=== PATIENT | male | born 1945 | race Caucasian/White ===

== ENCOUNTER → 2021-01-07 10:46 | Outpatient (REF) | payer MEDICARE, OTHER, SELFPAY ==
--- NOTE | 2021-01-07 | HM_ITS ---
TEST PERFORMED: Cardiac event monitoring. INDICATION: Palpitations. ENROLLMENT PERIOD: 01/08/2021 to 02/07/2021-30 days. INDICATION: Palpitations. FINDINGS: In the above monitoring period, the underlying rhythm was sinus. The rates ranged from 48 beats per minute to 120 beats per minute. Overall, average 68/min. There is no evidence of any atrial fibrillation. No significant pauses. There were rare PVCs-6 over the entire monitoring period. One instance of 3-beat run of ventricular ectopy. Rare PAC. No patient symptoms noted during the monitoring. CONCLUSION: Study shows underlying sinus rhythm with rare PVCs/PAC. One 3-beat ventricular run. Augusto Couch MD HS/MODL / [id number]
== END ==
LOC: HO.CARD 10:46
PROVIDERS: Visit Provider Emergency Medicine
DX: R00.2 Palpitations (principal)
CPT/HCPCS: 93270

== ENCOUNTER 2021-02-15 07:25 | Outpatient (REF) | payer MEDICARE, OTHER, SELFPAY ==
--- NOTE | ~2021-02-15 | CT_ITS ---
EXAMINATION: CT CHEST WITHOUT CONTRAST CLINICAL INFORMATION: Two-year followup of abnormal finding. COMPARISON: CT chest 02/12/2019 TECHNIQUE: Multidetector volumetric CT imaging of the chest was done. Axial MIP volume rendering provided. Sagittal and coronal reformatted images were obtained. This CT examination was performed using dose optimization techniques as appropriate, variously including the following: *Automated exposure control *Adjustment of mA and/or kV according to patient size (this includes techniques or standardized protocols for targeted exams where dose is matched to indication/reason for exam; i.e. extremities or head) *Use of iterative reconstruction technique DLP: 150 mGy-cm FINDINGS: CERTIFIED MEDICAL BILLER: Unremarkable. LUNGS: There is trace paraseptal emphysema without acute pneumonic process. There are several calcified and noncalcified small pulmonary nodules which are stable. The largest noncalcified pulmonary nodule in the left lower lobe measures 3 mm on axial image 418/5. There is no large pulmonary nodule or consolidation. There is no ground-glass density. MEDIASTINUM: The thyroid lobes are symmetric and normal. The central trachea and the bronchi are widely patent. The heart size and the great vessels are normal caliber. There are coronary artery calcifications. No pericardial effusion seen. PLEURA: There is no pleural effusion. No pleural mass or thickening. AXILLA: There are small bilateral axillary lymph nodes. The largest left axillary lymph node measures 7 mm and right axillary lymph node measures 8 mm. UPPER ABDOMEN: The visualized liver, pancreas and bilateral adrenal glands are unremarkable. The gallbladder is unremarkable. There is a hypodense lesion along the outer cortex measuring 1.2 cm axial image 56/3, likely simple cyst. OSSEOUS STRUCTURES: There is mild ventral spondylosis mid and lower dorsal spine. No lytic process. Hemangioma of T11 vertebra is noted. CT/CT chest wo con IMPRESSION: Trace paraseptal emphysema. Multiple small calcified and noncalcified pulmonary nodules are stable. The largest noncalcified pulmonary nodule in the left lower lobe measures 3 mm. Probable small cyst in the spleen. It is stable. Vertebral T11 hemangioma is stable.
== END 2021-02-15 07:26 | disposition home or self-care (01) ==
LOC: HO.CT 07:25
PROVIDERS: PCP Family Medicine; Visit Provider Family Medicine
DX: R91.8 Other nonspecific abnormal finding of lung field (principal)
CPT/HCPCS: 71250

== ENCOUNTER 2022-05-03 03:07 | Emergency (ER) | payer MEDICARE, OTHER, SELFPAY ==
--- NOTE | 2022-05-03 03:09 | ECG_ITS ---
Test Reason : PALPITATIONS Blood Pressure : / mmHG Vent. Rate : 075 BPM Atrial Rate : 075 BPM P-R Int : 150 ms QRS Dur : 076 ms QT Int : 350 ms P-R-T Axes : 054 040 038 degrees QTc Int : 390 ms Normal sinus rhythm Normal ECG When compared with ECG of 07-JUN-2018 07:02, No significant changes seen Referred By: Generic ED Physician Electronically Signed By:YVONNE FUNG MD
[2022-05-03 03:29] VITALS: BP 145/79; PULSE 91; RESP 14; TEMP 36.6; O2SAT 99; BMI 25.0
[2022-05-03 03:38] LABS: Hematocrit 44.2 % (42.0-52.0); Hemoglobin 14.5 g/dl (14.0-18.0); Mean Corpuscular HGB Conc 32.8 g/dl (31.0-36.0); Mean Corpuscular Hemoglobin 28.5 pg (27.0-33.0); Mean Corpuscular Volume 86.8 fL (80.0-98.0); Mean Platelet Volume 8.9 fL (9.4-12.4); Platelet Count 197 X10*3/uL (160-400); Red Blood Count 5.09 X10*6/uL (4.60-5.80); Red Cell Distribution Width 12.7 % (11.0-16.0); White Blood Count 7.6 X10*3/uL (4.8-10.8)
[2022-05-03 03:58] LABS: Alanine Aminotransferase 14 U/L (0-40); Albumin Level 4.1 g/dL (3.5-5.0); Alkaline Phosphatase 114 U/L (39-117); Anion Gap 16 (12-20); Aspartate Amino Transferase 11 U/L (5-37); Bilirubin Total 0.4 mg/dL (0.0-1.0); Blood Urea Nitrogen 12 mg/dL (9-16); Calcium 9.3 mg/dL (8.4-10.2); Carbon Dioxide 25 mmol/L (22-29); Chloride 103 mmol/L (96-108); Creatinine Clr Calc Pharmacy 77.6; Estimated Glomerular Filt Rate > 60; Glucose Random 110 mg/dL (60-115); Potassium 4.5 mmol/L (3.3-5.1); Sodium 139 mmol/L (135-145); Total Protein 6.5 g/dL (6.5-8.0)
[2022-05-03 05:46] VITALS: BP 142/91; PULSE 70; RESP 15; O2SAT 99
[2022-05-03 08:32] VITALS: BP 163/68; PULSE 74; RESP 16; O2SAT 100
== END 2022-05-03 09:08 | disposition left against medical advice (07) ==
PROVIDERS: Emergency Provider Emergency Medicine
DX: R00.2 Palpitations (principal)
CPT/HCPCS: 36415; 80053; 85027; 93005; 99283; 99284

== ENCOUNTER 2023-02-01 08:04 | Outpatient (REF) | payer MEDICARE, OTHER, SELFPAY ==
[2023-02-01 14:06] LABS: Alanine Aminotransferase 15 U/L (0-40); Albumin Level 4.2 g/dL (3.5-5.0); Alkaline Phosphatase 97 U/L (39-117); Anion Gap 13 (12-20); Aspartate Amino Transferase 12 U/L (5-37); Bilirubin Total 0.5 mg/dL (0.0-1.0); Blood Urea Nitrogen 17 mg/dL (9-16); Calcium 10.1 mg/dL (8.4-10.2); Carbon Dioxide 28 mmol/L (22-29); Chloride 101 mmol/L (96-108); Estimated Glomerular Filt Rate > 60; Glucose Random 102 mg/dL (60-115); Potassium 4.7 mmol/L (3.3-5.1); Sodium 137 mmol/L (135-145); Total Protein 7.1 g/dL (6.5-8.0)
[2023-02-01 14:30] LABS: Creatinine Urine 153.95 mg/dL; Microalbum/Creatinine Ratio Ur 5.8 ug/mg cr
[2023-02-01 14:32] LABS: Cholesterol 121 mg/dL; HDL Cholesterol 49 mg/dL; LDL Cholesterol Calculated 55 mg/dl; Triglycerides 89 mg/dL
[2023-02-01 14:35] LABS: Folate 9.2 ng/mL (> or = 4.0); Vitamin B12 1454 pg/mL (200-900)
[2023-02-01 15:16] LABS: Reflex LDLD? No
== END 2023-02-01 08:05 | disposition home or self-care (01) ==
LOC: HO.HHCL 08:04
PROVIDERS: Visit Provider Family Medicine
DX: E11.9 Type 2 diabetes mellitus without complications (principal)
CPT/HCPCS: 36415; 80053; 80061; 82043; 82607; 82746

== ENCOUNTER 2023-03-07 09:59 | Outpatient (REF) | payer MEDICARE, OTHER, SELFPAY ==
[2023-03-07 11:21] LABS: MANUAL DIFF FLAG NO
[2023-03-07 11:42] LABS: Basophils Absolute Auto 0.1 X10*3/uL (0.0-0.2); Basophils Percent Auto 1.1 % (0-2); Eosinophils Absolute Auto 0.1 X10*3/uL (0.0-0.4); Eosinophils Percent Auto 1.4 % (0-4); Hematocrit 42.5 % (42.0-52.0); Hemoglobin 14.1 g/dl (14.0-18.0); Imm Gran Abs Auto 0.02 X10*3/uL (0.00-0.03); Imm Gran Pct Auto 0.3 % (0.0-0.4); Lymphocytes Absolute Auto 1.7 X10*3/uL (1.2-4.9); Lymphocytes Percent Auto 25.5 % (20-40); Mean Corpuscular HGB Conc 33.2 g/dl (31.0-36.0); Mean Corpuscular Hemoglobin 28.8 pg (27.0-33.0); Mean Corpuscular Volume 86.9 fL (80.0-98.0); Mean Platelet Volume 9.8 fL (9.4-12.4); Monocytes Absolute Auto 0.6 X10*3/uL (0.1-1.2); Monocytes Percent Auto 8.9 % (2-11); Neutrophils Absolute Auto 4.1 x10*3/uL (2.0-8.3); Neutrophils Percent Auto 62.8 % (45-73); Platelet Count 204 X10*3/uL (160-400); Red Blood Count 4.89 X10*6/uL (4.60-5.80); Red Cell Distribution Width 12.8 % (11.0-16.0); White Blood Count 6.5 X10*3/uL (4.8-10.8)
[2023-03-07 12:45] LABS: TSH reflex Free T4 1.91 uIU/mL (0.32-4.0)
== END 2023-03-07 10:00 | disposition home or self-care (01) ==
LOC: HO.HHCL 09:59
PROVIDERS: Visit Provider Internal Medicine
DX: R00.2 Palpitations (principal)
CPT/HCPCS: 36415; 84443; 85025

== ENCOUNTER 2023-06-01 08:58 | Outpatient (AMB) | payer MEDICARE, MEDICAID, SELFPAY ==
--- NOTE | 2023-06-01 09:00 | MHC.OFFVIS ---
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 He is a pleasant 77-year-old male with history of hypertension, diabetes, hyperlipidemia for many years. 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 Happens 2-3 times a week. He said this symptoms wake him up from sleep. No associated symptoms of dizziness, lightheadedness, syncope. No chest pain or shortness of breath with it. Patient says he is very active and denies any exertional chest pain or shortness of breath. He had all event monitor about couple of years ago which showed isolated PVCs and 1 3 beat run of nonsustained VT. No echocardiogram subsequently was done. Patient is currently not on any medical therapy for the same. [facility] Medical History (Updated 06/01/23 @ 09:21 by Omid Jensen MD) Hyperlipidemia Diabetes HTN (hypertension) Family History (Updated 06/01/23 @ 09:07 by YUE Phillips) Father No problems noted. Mother No problems noted. Social History (Updated 06/01/23 @ 09:07 by YUE Phillips) Patient Tobacco Use Status: Former Tobacco user Review of Systems Const Denies chills, Denies daytime sleepiness, Denies fatigue, Denies fever(s), Denies frequent falls, Denies poor appetite, Denies snoring, Denies stops breathing during sleep, Denies weakness, Denies weight gain and Denies weight loss Eyes Denies loss of vision ENT Denies dizziness and Denies hearing loss Card Denies chest pain, Denies claudication, Denies leg edema, Denies lightheadedness, Denies palpitations, Denies dyspnea, Denies dyspnea on exertion and Denies orthopnea Resp Denies cough, Denies excessive phlegm production, Denies dyspnea, Denies dyspnea on exertion, Denies snoring and Denies wheezing GI Denies abdominal pain, Denies hematochezia, Denies change in bowel habits, Denies nausea and Denies vomiting Denies dysuria and Denies urinary frequency Musc Denies arthralgias, Denies muscle weakness, Denies numbness and Denies other (frequent falls) Skin/Breast Denies nail changes and Denies rash Neuro Denies Abnormal speech present, Denies dizziness, Denies frequent falls, Denies loss of vision, Denies memory loss, Denies numbness and Denies weakness Psych Denies depression and Denies memory loss Endo Denies fatigue and Denies palpitations Peterson/Lymph Reports easy bruising and Reports other (anemia) Aller/Immun Denies wheezing Physical Exam Vital Signs: Last Vital Signs Pulse 87 06/01/23 09:01 BP 116/74 06/01/23 09:01 BMI result Body Mass Index 23.5 Const General: cooperative, comfortable, no acute distress, alert, awake and Physically active Nutritional Appearance: well nourished Orientation/consciousness: patient oriented x3 Limitations: no limitations HEENT Head: Yes normocephalic and Yes atraumatic Neck Neck: Yes trachea midline, Yes supple and Yes no JVD Resp Effort & Inspection: normal respiratory effort Auscultation: clear to auscultation bilaterally Cardio Jugular venous distension: no JVD Palpation: normal PMI Rate: regular rate Rhythm: regular rhythm Heart sounds: S1 normal heart sound present, S2 normal heart sound present, no click, no gallops, no murmurs and no rubs GI Auscultation: normal bowel sounds Skin General skin exam: no rashes or lesions noted Neuro General: patient oriented x3 and no focal motor deficits Speech: No Abnormal speech present Extrem General: Yes no clubbing, cyanosis or edema Psych Appearance: grossly normal Office Procedures EKG Details: EKG shows normal sinus rhythm normal EKG dated 7 beats per minute 50181-[id number], Complete Assessment & Plan Assessment & Plan (1) Palpitations: Code(s): R00.2 - Palpitations Plan: Symptoms of palpitation which are bothersome and limiting his quality of life in this elderly gentleman with multiple risk factors. Although symptoms mostly happen at rest and not with exercise. He is very active and has no exertional symptoms. Likelihood of underlying structural heart issues are low. Will obtain echocardiogram to assess LV systolic and diastolic function to evaluate for valvular abnormality. Would suggest a 7 day Holter monitor to evaluate for symptoms of palpitations. Most likely appears to be related to isolated extra systoles such as PVCs. Will determine the frequency of the such and if any pharmacotherapy is required. Advise avoidance of stimulants and stress mid occasional strategies. Currently his blood pressure is optimized on lisinopril therapy. Diabetes under your care with goal hemoglobin A1c less than 7%. Continue statin therapy with target goal LDL at least below 100 mg/dL. Will follow up in the clinic in 4 weeks time, sooner p.r.n.. Thank you for allowing me to partake in his care Orders: Orders CA echo transthoracic complete Today I10 - Essential (primary) hypertension, R00.2 - Palpitations ECG 7 day holter monitor Today R00.2 - Palpitations Coding Level of Care Code New Pt Level 4 (05184) Diagnoses Palpitations R00.2 CPT Codes EKG - CPT: 71681-[id number], Complete ([id number])
[2023-06-01 09:01] VITALS: BP 116/74; PULSE 87; BMI 23.5
== END 2023-06-01 09:22 | disposition home or self-care (01) ==
PROVIDERS: Visit Provider Internal Medicine Cardiovascular Disease
DX: R00.2 Palpitations (principal)
CPT/HCPCS: 93010; 99204

== ENCOUNTER → 2023-06-01 08:58 | Outpatient (BNVA) | payer MEDICARE, MEDICAID, SELFPAY | PROVIDERS: Visit Provider Internal Medicine Cardiovascular Disease | DX: R00.2 Palpitations (principal) | CPT/HCPCS: 93005; 99202 ==

== ENCOUNTER 2023-06-20 08:20 | Day surgery (SDC) | payer MEDICARE, MEDICAID, SELFPAY ==
[2023-06-18 14:37] VITALS: BMI 23.3
--- NOTE | 2023-06-19 10:15 | HO.ANESPROP2 ---
HPI - Anesthesia Eval Consult details Narrative: 77yo M for Colonoscopy PMF Active Problems Active Problems: All Active Problems (Updated 06/19/23 @ 07:58 by Sherley Man RN) Palpitations (Acute) Hyperlipidemia (Acute) Diabetes (Acute) HTN (hypertension) (Acute) Past Medical History Medical History (Updated 06/19/23 @ 07:58 by Sherley Man RN) Lung nodules GERD (gastroesophageal reflux disease) Warthin's tumor Hypertriglyceridemia COPD (chronic obstructive pulmonary disease) Asthma Anxiety Hyperlipidemia Diabetes HTN (hypertension) Family History Family History (Updated 06/01/23 @ 09:07 by YUE Phillips) Father No problems noted. Mother No problems noted. Surgical History Surgical History (Updated 06/19/23 @ 07:58 by Sherley Man RN) H/O colonoscopy History of esophagogastroduodenoscopy (EGD) Social History Social History (Updated 06/01/23 @ 09:07 by YUE Phillips) Patient Tobacco Use Status: Former Tobacco user Meds Allergies Allergy/AdvReac Type Severity Reaction Status Date / Time clindamycin [CLINDAMYCIN] Allergy Intermediate ABD PAIN, Unverified 04/01/20 14:38 DIARRHEA Home Medications Medication Instructions Recorded Confirmed Last Taken Type atorvastatin 20 mg tablet 20 mg PO DAILY 06/01/23 06/01/23 Unknown History lisinopril 30 mg tablet 30 mg PO DAILY 06/01/23 06/01/23 Unknown History metformin 500 mg tablet,extended 500 mg PO BID 06/01/23 06/01/23 Unknown History release 24 hr cholecalciferol (vitamin D3) 25 25 mcg PO DAILY 06/19/23 06/19/23 Unknown History mcg (1,000 unit) capsule (Vitamin D3) famotidine 20 mg tablet 20 mg PO BEDTIME PRN Gastric Reflux 06/19/23 06/19/23 Unknown History omega-3 fatty acids-fish oil 684 1 cap PO DAILY 06/19/23 06/19/23 Unknown History mg-1,200 mg capsule,delayed release Exam Height,Weight and Vital Signs: Height 5 ft 7 in Weight 67.585 kg Pertinent Lab Results Pertinent Lab Results: Laboratory Tests 02/01/23 02/01/23 03/07/23 08:10 08:10 10:01 WBC 6.5 Hgb 14.1 Hct 42.5 Plt Count 204 Sodium 137 Potassium 4.7 Chloride 101 Carbon Dioxide 28 BUN 17 H Creatinine 0.83 Assessment and Plan Assessment Anesthesia Assessment: Chart Reviewed
[2023-06-20 08:25] VITALS: BMI 22.4
[2023-06-20 09:06] VITALS: BP 155/74; PULSE 78; RESP 16; TEMP 36.1; O2SAT 100
--- NOTE | 2023-06-20 09:06 | HO.ANESPROP2 ---
COUNT INCLUDES THE [facility] Active Problems Active Problems: All Active Problems (Updated 06/19/23 @ 07:58 by Sherley Man RN) Palpitations (Acute) Hyperlipidemia (Acute) Diabetes (Acute) HTN (hypertension) (Acute) Past Medical History Medical History Lung nodules GERD (gastroesophageal reflux disease) Warthin's tumor Hypertriglyceridemia COPD (chronic obstructive pulmonary disease) Asthma Anxiety Hyperlipidemia Diabetes HTN (hypertension) Functional capacity: independent ambulation Family History Family History Father No problems noted. Mother No problems noted. Surgical History Surgical History H/O colonoscopy History of esophagogastroduodenoscopy (EGD) Social History Social History Patient Tobacco Use Status: Former Tobacco user Quit Date: 15 years ago Use of substances other than those prescribed or required for medical reasons: No Are you DNR?: No Advance Directives: No Advance Directives Information Provided: Yes Meds Allergies Allergy/AdvReac Type Severity Reaction Status Date / Time clindamycin [CLINDAMYCIN] Allergy Intermediate ABD PAIN, Verified 06/20/23 08:29 DIARRHEA Active Medications: Current Medications Albuterol Sulfate (Albuterol Sulfate (0.083%) 2.5 Mg/3 Ml Vial.Neb) 2.5 mg INHALE ONCE PRN PRN Reason: Shortness of Breath/Wheezing Lactated Ringer's (Lr) 1,000 mls @ 100 mls/hr IVCONT .Q10H ZOILA Sodium Biphosphate/Sodium Phosphate (Sodium Phosphate,[place]-Dibasic 133 Ml Enema) 133 ml NM ONCE PRN PRN Reason: Poor Colonoscopy Prep Results Home Medications Medication Instructions Recorded Confirmed Last Taken Type atorvastatin 20 mg tablet 20 mg PO DAILY 06/01/23 06/20/23 Unknown History lisinopril 30 mg tablet 30 mg PO DAILY 06/01/23 06/20/23 06/20/23 History metformin 500 mg tablet,extended 500 mg PO BID 06/01/23 06/20/23 Unknown History release 24 hr cholecalciferol (vitamin D3) 25 25 mcg PO DAILY 06/19/23 06/20/23 Unknown History mcg (1,000 unit) capsule (Vitamin D3) famotidine 20 mg tablet 20 mg PO BEDTIME PRN Gastric Reflux 06/19/23 06/20/23 Unknown History omega-3 fatty acids-fish oil 684 1 cap PO DAILY 06/19/23 06/20/23 06/12/23 History mg-1,200 mg capsule,delayed release Exam Height,Weight and Vital Signs: Height 5 ft 7 in Weight 64.864 kg Airway Mallampati Class: II TM Dist: >3cm Neck ROM: Full Lungs: cTA Assessment and Plan Assessment Anesthesia Assessment: Anesthesia Plan Discussed Final Anesthetic Review NPO: Yes Final Preanesthetic Review: Meds/Allgs Chart Reviewed, Consent Obtained/Reviewed and Anes Risks/Benef Reviewed Patient Risk: Low Procedure Risk: Low Anesthetic Plan Anesthetic Plan: MAC: Disposition: Standard PACU
[2023-06-20] MEDS: Lactated Ringers 1,000 ML 100 ML IVCONT (09:08)
[2023-06-20 09:11] LABS: Glucose, Whole Blood 134 mg/dL (60-115)
--- NOTE | 2023-06-20 09:25 | HO.ANESPROP2 ---
[facility] Active Problems Active Problems: All Active Problems (Updated 06/19/23 @ 07:58 by Sherley Man RN) Palpitations (Acute) Hyperlipidemia (Acute) Diabetes (Acute) HTN (hypertension) (Acute) Past Medical History Medical History Lung nodules GERD (gastroesophageal reflux disease) Warthin's tumor Hypertriglyceridemia COPD (chronic obstructive pulmonary disease) Asthma Anxiety Hyperlipidemia Diabetes HTN (hypertension) Functional capacity: independent ambulation Family History Family History Father No problems noted. Mother No problems noted. Surgical History Surgical History H/O colonoscopy History of esophagogastroduodenoscopy (EGD) Social History Social History Patient Tobacco Use Status: Former Tobacco user Quit Date: 15 years ago Use of substances other than those prescribed or required for medical reasons: No Are you DNR?: No Advance Directives: No Advance Directives Information Provided: Yes Meds Allergies Allergy/AdvReac Type Severity Reaction Status Date / Time clindamycin [CLINDAMYCIN] Allergy Intermediate ABD PAIN, Verified 06/20/23 08:29 DIARRHEA Active Medications: Current Medications Albuterol Sulfate (Albuterol Sulfate (0.083%) 2.5 Mg/3 Ml Vial.Neb) 2.5 mg INHALE ONCE PRN PRN Reason: Shortness of Breath/Wheezing Lactated Ringer's (Lr) 1,000 mls @ 100 mls/hr IVCONT .Q10H ZOILA Last Admin: 06/20/23 09:08 Dose: 100 mls/hr Sodium Biphosphate/Sodium Phosphate (Sodium Phosphate,[place]-Dibasic 133 Ml Enema) 133 ml [place] ONCE PRN PRN Reason: Poor Colonoscopy Prep Results Home Medications Medication Instructions Recorded Confirmed Last Taken Type atorvastatin 20 mg tablet 20 mg PO DAILY 06/01/23 06/20/23 Unknown History lisinopril 30 mg tablet 30 mg PO DAILY 06/01/23 06/20/23 06/20/23 History metformin 500 mg tablet,extended 500 mg PO BID 06/01/23 06/20/23 Unknown History release 24 hr cholecalciferol (vitamin D3) 25 25 mcg PO DAILY 06/19/23 06/20/23 Unknown History mcg (1,000 unit) capsule (Vitamin D3) famotidine 20 mg tablet 20 mg PO BEDTIME PRN Gastric Reflux 06/19/23 06/20/23 Unknown History omega-3 fatty acids-fish oil 684 1 cap PO DAILY 06/19/23 06/20/23 06/12/23 History mg-1,200 mg capsule,delayed release Exam Height,Weight and Vital Signs: Height 5 ft 7 in Weight 64.864 kg Last Vital Signs Temp 96.9 F 06/20/23 09:06 Pulse 78 06/20/23 09:06 Resp 16 06/20/23 09:06 BP 155/74 H 06/20/23 09:06 Pulse Ox 100 06/20/23 09:06 O2 Del Method Room Air 06/20/23 09:06 Pertinent Lab Results Pertinent Lab Results: Laboratory Tests 06/20/23 09:04 POC Glucose 134 H Airway Mallampati Class: II TM Dist: >3cm Neck ROM: Full Heart: RRR Lungs: CTA Assessment and Plan Assessment Anesthesia Assessment: Anesthesia Plan Discussed Final Anesthetic Review ASA Class: II Final Preanesthetic Review: Meds/Allgs Chart Reviewed, Consent Obtained/Reviewed and Anes Risks/Benef Reviewed Patient Risk: Low Procedure Risk: Low Anesthetic Plan Anesthetic Plan: MAC: Disposition: Standard PACU
--- NOTE | 2023-06-20 10:38 | P.BOP_ITS ---
Brief Operative Note Date of Service: 06/20/23 Pre-op diagnosis: Screening Post-op diagnosis: other (Polyps) Procedure: Colonoscopy to the cecum and TI with bx/removal of polyps Surgeon: German Chapa MD Anesthesia: MAC Was an Senior Relationship Manager used for this Procedure?: No Estimated blood loss (mL): 2.0 Pathology: other (A. Ascending colon polyp B. Rectal polyp) Condition: stable Disposition: PACU
[2023-06-20 10:45] VITALS: BP 111/59; PULSE 78; RESP 16; TEMP 36.1; O2SAT 99
[2023-06-20 11:00] VITALS: BP 132/69; PULSE 69; RESP 18; TEMP 36.4; O2SAT 100
--- NOTE | 2023-06-20 11:20 | OP_ITS ---
DATE OF SERVICE: 06/20/2023 SURGEON: German Chapa MD INDICATIONS: The patient presents for evaluation of colorectal cancer screening. Full consent was obtained from him for this, including risks of bleeding and perforation. PREOPERATIVE DIAGNOSIS: Colorectal cancer screening. POSTOPERATIVE DIAGNOSIS: Colorectal cancer screening, small colon polyps, mild diverticulosis, small internal hemorrhoids. PROCEDURE PERFORMED: Colonoscopy to cecum and terminal ileum with biopsy removal of polyps. ESTIMATED BLOOD LOSS: COMPLICATIONS: ANESTHESIA: Monitored anesthesia care. ASSISTANTS: SPECIMENS: DESCRIPTION OF PROCEDURE: The patient was placed in the left lateral decubitus position. The digital rectal exam revealed no abnormalities. The Olympus video pediatric colonoscope was entered into the rectum and advanced easily to the cecum. Once in the cecum, I did identify normal-appearing cecal pouch with appendiceal orifice and a normal-appearing ileocecal valve. The terminal ileum was cannulated and appeared normal. The scope withdrawn back in the colon. The entire cecum and ileocecal valve appeared normal. The scope was slowly withdrawn assessing all mucosal surfaces carefully. Preparation was excellent. In the ascending colon and rectum were flat, less than 5 mm polyps, which were biopsy and removed with cold biopsy forceps. I did not visualize any other polyps, colitis, or angiodysplasia. There was a mild amount of sigmoid diverticulosis. In the rectum, scope was retroflexed visualizing internal hemorrhoids, but no other pathology. The rectal mucosa appeared normal. The scope was straightened and withdrawn from the patient. He tolerated the procedure well and was returned to recovery area in stable condition. IMPRESSION: 1. Colon polyps. 2. Diverticulosis. 3. Internal hemorrhoids. PLAN: The results of the biopsy will be checked. Even if these are tubular adenomas, I do not think he will need any further screening colonoscopies given his age and these minimal findings. He will otherwise see me on a p.r.n. basis. This has been discussed with his daughter, Laverne. MD LAURA Hill/JOMAR / [id number]
--- NOTE | 2023-06-20 12:35 | HO.POSTANES ---
Post Anesthesia Evaluation Post Anesthesia Evaluation Date of Service: 06/20/23 Vital Signs: Vital Signs Temp Pulse Resp BP Pulse Ox O2 Del Method 06/20/23 11:00 97.5 F 69 18 132/69 100 Room Air 06/20/23 10:45 97 F 78 16 111/59 L 99 Room Air 06/20/23 09:06 96.9 F 78 16 155/74 H 100 Room Air Anesthesia: Monitored Mental Status: Awake Pain Control: Satisfactory Nausea/Vomiting: None Hydration: Adequate Anesthesia-Related Issues: No Anes. Related Issues
== END 2023-06-20 11:30 | disposition home or self-care (01) ==
PROVIDERS: PCP Family Medicine; Visit Provider Internal Medicine
PROC: 0DJD8ZZ Inspection of Lower Intestinal Tract, Via Natural or Artificial Opening Endoscopic (ICD-10-PCS; CPT 45378; principal; 2023-06-20 09:40)
DX: Z12.11 Encounter for screening for malignant neoplasm of colon (principal); K63.5 Polyp of colon; K57.30 Diverticulosis of large intestine without perforation or abscess without bleeding; K64.8 Other hemorrhoids; E11.9 Type 2 diabetes mellitus without complications; I10 Essential (primary) hypertension; E78.5 Hyperlipidemia, unspecified; J44.9 Chronic obstructive pulmonary disease, unspecified; D11.9 Benign neoplasm of major salivary gland, unspecified; Z87.891 Personal history of nicotine dependence; Z79.84 Long term (current) use of oral hypoglycemic drugs; Z79.02 Long term (current) use of antithrombotics/antiplatelets
CPT/HCPCS: 45380; 82947; 88305; J2704

== ENCOUNTER → 2023-06-26 07:38 | Outpatient (REF) | payer MEDICARE, MEDICAID, SELFPAY ==
--- NOTE | 2023-06-26 07:44 | CA_ITS ---
Transthoracic Echocardiogram Patient (Last, First, Middle): Marcelo Richardson, Gender: Male Date of : 1945 Age: 77 Procedure Date: 06/26/2023 Procedure Type: Transthoracic Echocardiogram Location: OP Height: 170.18 cm Weight: 67.59 kg BSA: 1.78 m2 Heart Rate: bpm BP: 150 / 62 mmHg Wrister: TO Referring MD: Omid Jensen MD Symptoms: R00.2 - Palpitations Study Quality: Fair ECG Rhythm: Sinus Conclusions: - The left ventricular systolic function is normal. The calculated ejection fraction is 65% by biplane method. - No obvious valvular pathology seen on this study. Findings Left Ventricle Normal left ventricular cavity size. The left ventricular systolic function is normal. The calculated ejection fraction is 65% by biplane method. There is no evidence of regional wall motion abnormalities. Diastolic function is normal for age. There is mild septal asymmetric hypertrophy. Right Ventricle Normal right ventricular cavity size and systolic function. Atria Both atria are normal in size. Aortic Valve There is a normal trileaflet aortic valve. There is no aortic valve stenosis. There is no aortic valve regurgitation. Mitral Valve The mitral valve appears normal. There is trace mitral valve regurgitation. There is no mitral valve stenosis. Pulmonic Valve The pulmonic valve is likely normal. Tricuspid Valve Normal tricuspid valve structure. There is mild tricuspid valve regurgitation. There is no evidence of pulmonary hypertension. Great Vessels The asc aorta is normal in size. Venous The inferior vena cava is normal in size and collapses greater than 50% with inspiration. Pericardium/Pleural There is no evidence of pericardial effusion. Prior Study Comparison No significant change compared to prior study dated: 01/26/2010. Recommendations, Care & Conclusions No obvious valvular pathology seen on this study. Measurements 2D Linear Measurements IVSd: 1.32 0.6-0.9/0.6-1.0 cm LVIDd: 3.72 3.9-5.3/4.2-5.9 cm LVIDd Index: 2.09 2.4-3.2/2.2-3.1 cm/m2 LVIDs: 2.16 2.0-3.6 cm LVPWd: 0.95 0.7-1.1 cm LA Diam: 2.80 2.7-3.8/3.0-4.0 cm LAIDs Index: 1.57 1.5-2.3 cm/m2 LV Mass: 170.09 67-162/88-224 g LV Mass Index: 95.56 43-95/49-115 g/m2 LVOT Diam: 2.20 3.0+(-)1.3 cm 2D Systolic Function EF 4C: 69.30 >55% EF 2C: 61.30 >55% EF BiP: 64.90 >55% Mitral Valve MV VTI: 0.22 MV Pk Joe: 0.99 MV Mn Joe: 0.65 MV Pk Grad: 4.00 MV Mn Grad: 2.00 MV Pk E: 0.63 MV PK A: 0.73 MV Decel Time: 194.00 E/A: 0.90 E'Lateral: 7.94 E'Medial: 6.96 E/E' Med: 9.00 E/E' Lat: 7.90 PHT: 57.00 MVA PHT: 3.86 MVA Continuity: 3.47 Decel [place]: 3.22 Aortic Valve AoV Pk Joe: 1.17 AoV Mn Joe: 0.85 AoV VTI: 0.25 AoV Pk Grad: 5.00 Aov Mn Grad: 3.00 JENNIFER Cont.VTI: 3.06 LVOT LVOT Pk Joe: 1.00 LVOT Mn Joe: 0.72 LVOT VTI: 0.20 LVOT Pk Grad: 4.00 LVOT Mn Grad: 2.00 LVOT Diam: 2.20 LVOT Area: 3.80 Diastolic Function MV Pk E: 0.63 MV Pk A: 0.73 E/A: 0.90 E'Medial: 6.96 E/E' Med: 9.00 E' Laterial: 7.94 E/E' Lat: 7.90 Right Ventricle TAPSE (mm): 22.60 TVS' Joe: 14.30 Tricuspid Valve TR Pk Joe: 2.42 TR Pk Grad: 23.00 RA Press: 3.00 RVSP: 26.00 Great Vessels Aorta Sinus of Valsalva: 3.68 2.0-3.[address] [place]: 2.33 1.7-3.4 cm Ao Asc: 3.30 2.1-3.4 cm Updated in Other Vendor System with Status of Final Augusto Couch MD electronically signed on 06/27/2023 2:23:54 PM with status of Final
--- NOTE | 2023-06-26 07:44 | HM_ITS ---
* Total monitoring time about 7 days. * Underlying rhythm is sinus. Average ventricular rate 76/Min. Range 51 to 133/Min. * Rare supraventricular and ventricular ectopy with minimal burden. * No significant pauses or AV blocks. * No patient markers or events in diary. MTDD
== END ==
LOC: HO.CARD 07:38
PROVIDERS: PCP Family Medicine; Visit Provider Internal Medicine Cardiovascular Disease
DX: R00.2 Palpitations (principal); I10 Essential (primary) hypertension
CPT/HCPCS: 93242; 93306

== ENCOUNTER → 2023-06-26 07:44 | Outpatient (BNV) | payer MEDICARE, MEDICAID, SELFPAY | PROVIDERS: PCP Family Medicine; Visit Provider Internal Medicine | DX: R00.2 Palpitations (principal) | CPT/HCPCS: 93244; 93306 ==

== ENCOUNTER 2023-07-17 08:00 | Outpatient (AMB) | payer MEDICARE, MEDICAID, SELFPAY ==
--- NOTE | 2023-07-17 08:12 | A.OFFVIS_ITS ---
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 He recently underwent an echocardiogram and holter monitor and now presents for follow up. Today he states when he eats extra salt he notices that his heart will be harder. He has recorded more elevated blood pressures at this time. Mostly his strong heartbeats occur at night. He does not notice it as much during the day. He is not noticing rapid heartbeats or skipped beating. No presyncope, syncope, falls. No PND, orthopnea or edema. Taking all meds as directed. Lives on the 5th floor and is able to do the stairs up to his apartment. Able to walk 2-3 miles without concerning symptoms. PENDING SALE TO [facility] Medical History Lung nodules GERD (gastroesophageal reflux disease) Warthin's tumor Hypertriglyceridemia COPD (chronic obstructive pulmonary disease) Asthma Anxiety Hyperlipidemia Diabetes HTN (hypertension) Surgical History H/O colonoscopy History of esophagogastroduodenoscopy (EGD) Family History Father No problems noted. Mother No problems noted. Social History Patient Tobacco Use Status: Former Tobacco user Quit Date: 15 years ago Review of Systems Const All systems reviewed & are unremarkable except as noted in HPI and below Denies chills, Denies fatigue, Denies fever(s), Denies frequent falls, Denies weakness, Denies weight gain and Denies weight loss ENT Denies dizziness Card Details: strong beating heart Denies chest pain, Denies leg edema, Denies lightheadedness, Denies palpitations, Denies dyspnea and Denies dyspnea on exertion Resp Denies cough, Denies dyspnea and Denies dyspnea on exertion GI Denies hematochezia Musc Denies abnormal gait, Denies muscle weakness, Denies numbness, Denies radiating pain into limb and Denies tingling Neuro Denies abnormal gait, Denies dizziness, Denies frequent falls, Denies numbness, Denies tingling and Denies weakness Endo Denies fatigue and Denies palpitations Physical Exam Const General: cooperative, healthy appearing, comfortable and no acute distress Orientation/consciousness: patient oriented x3 Neck Neck: Yes normal visual inspection Resp Effort & Inspection: normal respiratory effort Auscultation: clear to auscultation bilaterally, no crackles, no rales, no rhonchi and no wheezes Cardio Jugular venous distension: no JVD Rate: regular rate Rhythm: regular rhythm Heart sounds: S1 normal heart sound present, S2 normal heart sound present, no murmurs and no rubs Neuro General: patient oriented x3 Extrem General: Yes normal to inspection Psych Appearance: grossly normal Mental Status: mental status grossly normal Speech and movement: Normal speech and movement present Assessment & Plan Assessment & Plan (1) Palpitations: Code(s): R00.2 - Palpitations Plan: Reports of heart palpitations: Strong heartbeat that occurs mostly at night. He says he has documented more elevated blood pressure readings at this time. He feels that his salt intake has something to do with the episodes. No symptomatic palpitations with lightheadedness, presyncope, syncope. Echocardiogram done 06/26/2023 shows normal EF and no valve abnormalities. Holter monitor done 06/26/2023 for 7 days shows sinus rhythm with average heart rate 76, heart rate range 51 to 133, rare SVE and VE. Review test results with him. Offered reassurance that palpitations do not sound concerning. Discussed reduction of salt in his diet -as this may raise his blood pressure and give him that strong heartbeat sensation. Continue management for hypertension with lisinopril. Continue physical activity as tolerated. Continue all risk factor modifications for heart disease including good cholesterol and diabetes control. Cardiology follow-up as needed. (2) HTN (hypertension): Code(s): I10 - Essential (primary) hypertension Plan: Near goal at present. Managed by his PCP. Continue on lisinopril. Dose can be further increased if his blood pressure remains mildly elevated. Discussed low-salt diet as above. Coding Level of Care Code Est Pt Level 3 (15161) Diagnoses Palpitations R00.2 HTN (hypertension) I10 Time Spent (min) 22
[2023-07-17 08:13] VITALS: BP 140/60; PULSE 85; BMI 23.4
== END 2023-07-17 08:35 ==
PROVIDERS: PCP Family Medicine; Visit Provider Nurse Practitioner Family
DX: R00.2 Palpitations (principal); I10 Essential (primary) hypertension
CPT/HCPCS: 99213

== ENCOUNTER → 2023-07-17 08:00 | Outpatient (BNVA) | payer MEDICARE, MEDICAID, SELFPAY | PROVIDERS: PCP Family Medicine; Visit Provider Nurse Practitioner Family | DX: R00.2 Palpitations (principal); I10 Essential (primary) hypertension; Z79.899 Other long term (current) drug therapy | CPT/HCPCS: 99212 ==

== ENCOUNTER 2024-07-23 10:48 | Outpatient (REF) | payer MEDICARE, MEDICAID, SELFPAY ==
--- OUTSIDE RECORDS SUMMARY | 2024-07-23 11:13 | XMS_ITS ---
Author Organization [facility] Address [address] [place] [address] Care Team Providers Care Shop Superintendent Name Role Phone Maikol HORTON, Rain Primary Care Provider German Nava [phone] REASON FOR VISIT bowel prep MEDICATIONS Medication SIG (Take, Route, Frequency, Duration) Notes Start Date End Date Status Dulcolax (colon prep) 5 MG take at 3:00 p.m and 7:00p.m. Orally two tablets twice a day for one day for 1 day 03/23/2023 Active MiraLax (colon prep) 17 GM/SCOOP 1 238 Gm Bottle mixed with Gatorade or Crystal Light Orally begin at 5:00 p.m. the day before the procedure for 1 day 03/23/2023 Active Encounters Encounter Location Date Provider Diagnosis [facility] [address] [place] [id number] 03/21/2023 German Chapa PLAN OF TREATMENT Medication Medication Name Sig Start Date Stop Date Notes Dulcolax (colon prep) 5 MG take at 3:00 p.m and 7:00p.m. Orally two tablets twice a day for one day for 1 day 03/23/2023 MiraLax (colon prep) 17 GM/SCOOP 1 238 Gm Bottle mixed with Gatorade or Crystal Light Orally begin at 5:00 p.m. the day before the procedure for 1 day 03/23/2023
--- OUTSIDE RECORDS SUMMARY | 2024-07-23 11:13 | XMS_ITS ---
Author Organization [facility] Address [address] [place] [address] Care Team Providers Care Unix Manager Name Role Phone Maikol HORTON, Rain Primary Care Provider German Nava [phone] ALLERGIES No Known Allergies REASON FOR VISIT Patient presents today for a COLON SCREENING MEDICATIONS Medication SIG (Take, Route, Frequency, Duration) Notes Start Date End Date Status Famotidine 20 MG 1 tablet at bedtime as needed Orally Once a day for 30 day(s) Active metFORMIN HCl ER 500 MG 1 tablet with ev ening meal Orally Once a day for 30 day(s) Active [place] 3 1000 MG 1 capsule Orally Onc e a day for 30 day(s) Active Triamcinolone & Emollient Active Fish Oil 1000mg Acti ve Albuterol Sulfate 90mcg Active LamISIL 1% Active Lisinopril 30 MG 1 tablet Orally Once a day Active Omeprazole 20mg 1 QD Acti ve Triamcinolone Acetonide 0.1% Active Terbinafine 1% Activ e Atorvastatin Calcium 20 MG 1 tablet Oral ly Once a day for 30 day(s) Active Vitamin D-3 125 MCG (5000 UT) 1 tablet Orally Once a day for 30 day(s) Active SOCIAL HISTORY Tobacco Use: Social History Observation Description Date Details (start date - stop date) Former Smoker NA - NA Sex Assigned At : Social History Observation Description Sex Assigned At Unknown Tobacco Use/Smoking Question Answer Notes Patient is a former smoker How long has it been since you last smoked? 1-5 years Alcohol Screen Question Answer Notes Did you have a drink contain ing alcohol in the past year? Yes Points 2 Interpretation Negative How often did you have 6 or more drinks on one occasion in the past year? Never (0 point) How many drinks did you have on a typical day when you were drinking in the past year? 3 or 4 drinks (1 point) How often did you have a dri nk containing alcohol in the past year? Monthly or less (1 point) PROBLEMS Problem Type ICD Code Onset Dates Problem Status W/U Status Risk SNOMED Code Notes Problem Colon cancer screening (Z12.11) Active confirmed 158437130 Problem Preprocedural examination (Z01.818) Active confirmed 894233965936161 VITAL SIGNS BMI 23.85 kg/m2 03/21/2023 Blood pressure systolic 000 mm Hg 03/21/20 23 Blood pressure diastolic 00 mm Hg 023 Height 66 in 03/21/2023 Temperature 97.7 degrees Fahrenheit 03/21/20 23 Weight 147.8 lbs 03/21/2023 Encounters Encounter Location Date Provider Diagnosis [facility] [address] [place] [address] 03/21/2023 German Chapa Colon cancer screeni ng Z12.11 and Preprocedural examination Z01.818 ASSESSMENTS Encounter Date Diagnosis Assessment Notes Treatment Notes Treatment Clinical Notes 03/21/2023 Colon cancer screening (ICD-10 - Z12.11) Stop the fish oil/[place]-3 for 1 week before the colonoscopy Do not take the Metformin the night before nor on the morning of the colonoscopy 03/21/2023 Preprocedural examination (ICD-10 - Z01.818) PLAN OF TREATMENT Treatment Notes Assessment Notes Colon cancer screening Stop the fish oil/[place]-3 for 1 week before the colonoscopy Do not take the Metformin the night before nor on the morning of the colonoscopy Future Test Test Name Order Date COLONOSCOPY 04/14/2023 Next Appt Details Follow Up: prn, Reason: Progress Notes * Examination Category Sub-Category Detail Notes General Examination GENERAL APPEARANCE: pleasant , well nourished, well developed, in no acute distress EYES: sclera non-icteric NECK/THYROID: no cervical lymphade nopathy, neck supple HEART: S1, S2 normal LUNGS: clear to auscultatio n bilaterally ABDOMEN: normal bowel sounds, no guarding or rigidity, no hepatosplenomegaly, no masses palpable, soft, nontender, nondistended. NEUROLOGIC: alert and oriented SKIN: nonjaundiced, no spi carol angiomata. EXTREMITIES: no edema ORAL CAVITY: mucosa moist
--- OUTSIDE RECORDS SUMMARY | 2024-07-23 11:13 | XMS_ITS ---
Author Organization [facility] Address [address] [place] [address] Care Team Providers Care Bench Manager Name Role Phone Maikol HORTON, Rain Primary Care Provider German Nava Unavailable [phone] REASON FOR VISIT screening PROBLEMS Problem Type ICD Code Onset Dates Problem Status W/U Status Risk SNOMED Code Notes Problem Diverticulosis of large intestine without perforation or abscess without bleeding (K57.30) Active confirmed Diverticul ar disease of colon (139360730) Encounters Encounter Location Date Provider Diagnosis [facility] [address] [address] [place] [id number] 06/20/2023 German Chapa Encounter for scre ening colonoscopy Z12.11 ; Colon polyps K63.5 ; Rectal polyp K62.1 ; Diverticulosis of large intestine without perforation or abscess without bleeding K57.30 and Other hemorrhoids K64.8 ASSESSMENTS Encounter Date Diagnosis Assessment Notes Treatment Notes Treatment Clinical Notes 06/20/2023 Encounter for screening colonoscopy (ICD-10 - Z12.11) 06/20/2023 Colon polyps (ICD-10 - K63.5) 06/20/2023 Rectal polyp (ICD-10 - K62.1) 06/20/2023 Diverticulosis of large intestine without perforation or abscess without bleeding (ICD-10 - K57.30) 06/20/2023 Other hemorrhoids (ICD-10 - K64.8) PLAN OF TREATMENT No Information
--- OUTSIDE RECORDS SUMMARY | 2024-07-23 11:14 | XMS_ITS | Patient Health Record ---
Author Organization [facility] Address [address] [place] [address] Care Team Providers Care Campground Attendant Name Role Phone Maikol HORTON, Rain Primary Care Provider German Nava [phone] ALLERGIES No Known Allergies REASON FOR REFERRAL No Information MEDICATIONS Medication SIG (Take, Route, Frequency, Duration) Notes Start Date End Date Status Omeprazole 20mg 1 QD Acti ve Atorvastatin Calcium 20 MG 1 tablet Oral ly Once a day for 30 day(s) Active Vitamin D-3 125 MCG (5000 UT) 1 tablet Orally Once a day for 30 day(s) Active Dulcolax (colon prep) 5 MG take at 3:00 p.m and 7:00p.m. Orally two tablets twice a day for one day for 1 day 03/23/2023 Active MiraLax (colon prep) 17 GM/SCOOP 1 238 Gm Bottle mixed with Gatorade or Crystal Light Orally begin at 5:00 p.m. the day before the procedure for 1 day 03/23/2023 Active Triamcinolone Acetonide 0.1% Active Terbinafine 1% Activ e Famotidine 20 MG 1 tablet at bedtime as needed Orally Once a day for 30 day(s) Active Fish Oil 1000mg Acti ve metFORMIN HCl ER 500 MG 1 tablet with ev ening meal Orally Once a day for 30 day(s) Active Albuterol Sulfate 90mcg Active [place] 3 1000 MG 1 capsule Orally Onc e a day for 30 day(s) Active LamISIL 1% Active Triamcinolone & Emollient Active Lisinopril 30 MG 1 tablet Orally Once a day Active IMMUNIZATIONS Vaccine Route Administration Date Status Comme nts Influenza Unknown 06/06/2022 Administered SOCIAL HISTORY Sex Assigned At : Social History Observation Description Sex Assigned At Unknown PROBLEMS Problem Type ICD Code Onset Dates Problem Status W/U Status Risk SNOMED Code Notes Problem Colon cancer screening (Z12.11) Active confirmed [id number] Problem Diverticulosis of large intestine without perforation or abscess without bleeding (K57.30) Active confirmed Diverticul ar disease of colon (701387156) Problem Preprocedural examination (Z01.818) Active confirmed [id number] PLAN OF TREATMENT Pending Test Test Name Order Date Pathology 06/20/2023 Future Test Test Name Order Date COLONOSCOPY 04/08/2013 COLONOSCOPY 04/14/2023 Insurance Providers Payer Name Payer Address Payer Phone Subscriber Number Group Number Insured Name Patient Relationship to Insured Coverage Start Date Coverage End Date MEDICARE OF [place] [address] [place] [phone] [id number] JENIFFER RODRIGUEZ Self - patient is the insured MEDICAID OF [facility] [employer] [address] [place] [address] [id number] JENIFFER RODRIGUEZ Self - patient is the insured MEDICAL (GENERAL) HISTORY Medical History History ICD Code Colonoscopy in 01/2003-hyperp lastic polyps--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
[2024-07-23 13:32] LABS: Alanine Aminotransferase 26 U/L (0-40); Albumin Level 4.3 g/dL (3.5-5.0); Alkaline Phosphatase 90 U/L (39-117); Anion Gap 13 (12-20); Aspartate Amino Transferase 21 U/L (5-37); Bilirubin Total 0.4 mg/dL (0.0-1.0); Blood Urea Nitrogen 14 mg/dL (9-16); Calcium 9.7 mg/dL (8.4-10.2); Carbon Dioxide 25 mmol/L (22-29); Chloride 107 mmol/L (96-108); Cholesterol 134 mg/dL (<200); Estimated Glomerular Filt Rate > 60; Glucose Random 82 mg/dL (60-115); HDL Cholesterol 57 mg/dL (>40); LDL Cholesterol Calculated 45 mg/dL (<100); Potassium 4.3 mmol/L (3.3-5.1); Sodium 141 mmol/L (135-145); Total Protein 7.1 g/dL (6.5-8.0); Triglycerides 161 mg/dL (<150)
[2024-07-23 13:42] LABS: Creatinine Urine 82.19 mg/dL; Microalbumin Urine < 5.0 mg/L
[2024-07-23 14:03] LABS: Folate 8.2 ng/mL (> or = 4.0); Vitamin B12 969 pg/mL (200-900)
[2024-07-23 14:12] LABS: Reflex LDLD? No
== END 2024-07-23 10:49 | disposition home or self-care (01) ==
LOC: HO.HHCL 10:48
PROVIDERS: Visit Provider Family Medicine
DX: E11.9 Type 2 diabetes mellitus without complications (principal); I10 Essential (primary) hypertension; E78.1 Pure hyperglyceridemia
CPT/HCPCS: 36415; 80053; 80061; 82570; 82607; 82746